=== PATIENT | female | born 1950 | race American Indian/Alaskan Native ===

== ENCOUNTER 2016-09-05 12:03 | Outpatient (CLI) | payer BC ==
--- NOTE | 2016-09-05 14:59 | Mammography Report ---
STEREOTACTIC VACUUM ASSISTED BIOPSY WITH CLIP PLACEMENT LEFT BREAST: 09/05/16 12:03:00 CLINICAL: A 4 mm mass in the lower outer quadrant. COMPARISON:[facility]16[facility]16 [facility] [place] FINDINGS: Consent for the procedure was obtained. The previously identified 4 mm mass was targeted with stereotactic guidance. The skin was prepped with Betadine and anesthetized with 1% lidocaine. 2% lidocaine with epinephrine was injected for deeper anesthesia. 8 gauge Mammotome biopsy was performed from a CC from the low approach through a small dermatotomy. Prefire and post-fire images demonstrated satisfactory positioning of the probe. Samples were obtained around the clock face. A specimen radiograph confirmed satisfactory sampling with removal of a significant portion of the mass and one core. A clip was placed at the biopsy site and the placement was confirmed with a radiograph. The probe was removed and hemostasis was achieved with mild pressure. A sterile dressing was applied. The patient tolerated the procedure well and there were no apparent complications. Two view mammogram demonstrated concordant position of the biopsy clip and no residual mass identified. IMPRESSION: Uncomplicated stereotactic biopsy with clip placement left breast.
--- NOTE | 2016-09-05 15:01 | Mammography Report ---
LEFT DIGITAL DIAGNOSTIC MAMMOGRAM: 09/05/16 12:03:00 CLINICAL: For clip placement immediately status post stereotactic biopsy. COMPARISON:08/16/16 and 07/23/16 mammograms from [facility], [place], [place]. FINDINGS: A biopsy clip is now identified in the lower outer quadrant in no apparent mass remains. IMPRESSION: Concordant clip placement status post stereotactic biopsy. BI-RADS CATEGORY: 4--Suspicious Pathology pending.
== END 2016-09-05 12:04 | disposition home or self-care (01) ==
LOC: SPVWC 12:03
PROVIDERS: ATTEND Surgery
DX: N63 Unspecified lump in breast (principal)
CPT/HCPCS: 19081; 88305; A4648; G0206; 88342